=== PATIENT | female | born 1930 | race Caucasian/White ===

== ENCOUNTER → 2016-03-21 | Outpatient (CLI) | payer MEDICARE, OTHER | END | disposition home or self-care (01) | LOC: MW.CHFP 13:51 | PROVIDERS: ATTEND Emergency Medicine | DX: I10 Essential (primary) hypertension (principal); L98.499 Non-pressure chronic ulcer of skin of other sites with unspecified severity; L92.9 Granulomatous disorder of the skin and subcutaneous tissue, unspecified; Z93.2 Ileostomy status; Z93.3 Colostomy status | CPT/HCPCS: 36415; 80053; 85027; G0463 ==

== ENCOUNTER → 2016-04-04 | Outpatient (CLI) | payer MEDICARE, OTHER | END | disposition home or self-care (01) | LOC: MW.CHFP 12:23 | PROVIDERS: ATTEND Emergency Medicine | DX: T81.4XXA Infection following a procedure, initial encounter (principal) | CPT/HCPCS: 87070; 87077; 87186; G0463 ==

== ENCOUNTER → 2016-05-30 | Outpatient (CLI) | payer MEDICARE, OTHER | LOC: MW.CHORTHO 08:00 | PROVIDERS: ATTEND Orthopaedic Surgery | DX: M17.11 Unilateral primary osteoarthritis, right knee (principal); M17.12 Unilateral primary osteoarthritis, left knee; M11.269 Other chondrocalcinosis, unspecified knee; M25.561 Pain in right knee; M25.562 Pain in left knee | CPT/HCPCS: 20610-50; 99214; J1040; J7326 ==

== ENCOUNTER → 2016-06-21 | Outpatient (CLI) | payer MEDICARE, OTHER | LOC: MW.CHFP 13:41 | PROVIDERS: ATTEND Emergency Medicine | DX: K52.9 Noninfective gastroenteritis and colitis, unspecified (principal); H61.23 Impacted cerumen, bilateral; H10.9 Unspecified conjunctivitis | CPT/HCPCS: G0463 ==

== ENCOUNTER → 2016-06-22 | Outpatient (CLI) | payer MEDICARE, OTHER | LOC: MW.CHFP 10:11 | PROVIDERS: ATTEND Emergency Medicine | DX: K52.9 Noninfective gastroenteritis and colitis, unspecified (principal) | CPT/HCPCS: 83630; 87046; 87324; 87899 ==

== ENCOUNTER 2016-08-06 15:18 | Emergency (ER) | payer MEDICARE, OTHER ==
--- NOTE | 2016-08-06 15:35 | EDM.PDOC ---
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 Willson within the last 2 weeks and old sutures were removed from ostomy site, she is followed with her surgeon Dr. Agustin twice last week , his scheduled her for surgical correction in 2 weeks from Sunday She is unable to place the ostomy which has not changed over the last week Dr. Agustin has been having her cover the opening with some abdominal pad and dressing changing as needed, her main problem is she is mildly dehydrated as she is not drinking much as after taking oral liquids or food obviously she has more stool leakage from the site She has red beefy skin surrounding the area she has been placing [place] 17 and a wound powder provided by Dr. Agustin No fever nausea vomiting chills sweats no chest pain shortness breath headache dizziness palpitation Review of systems: As per history of present illness and below otherwise all systems reviewed and negative. Past medical history: As per history of present illness and as reviewed below otherwise noncontributory. Surgical history: As per history of present illness and as reviewed below otherwise noncontributory. Social history: No reported history of drug or alcohol abuse. Family history: As per history of present illness and as reviewed below otherwise noncontributory. Physical exam: HEENT: Atraumatic, normocephalic, pupils reactive, negative for conjunctival pallor or scleral icterus, mucous membranes moist, throat clear, neck supple, nontender, trachea midline. Lungs: Clear to auscultation, breath sounds equal bilaterally, chest nontender. Heart: S1S2, regular, negative for clicks, rubs, or JVD. Abdomen: Soft, nondistended, nontender. Negative for masses or hepatosplenomegaly. Negative for costovertebral tenderness. Ostomy site beefy red skin surrounding old ostomy site with scant stool leakage , this is unchanged from previous per patient Pelvis: Stable nontender. Genitourinary: Deferred. Rectal: Deferred. Extremities: Atraumatic, negative for cords or calf pain. Neurovascular unremarkable. Neuro: Awake, alert, oriented. Cranial nerves II through XII unremarkable. Cerebellum unremarkable. Motor and sensory unremarkable throughout. Exam nonfocal. Diagnostics: []Lab as below Therapeutics: 1 L normal saline bolus []Rather than calmoseptine I have opted to provide Silvadene Follow-up with Dr. Agustin as scheduled sooner as needed, the patient plans to call tomorrow to be moved up on schedule Impression: Mild dehydration []Chronic wound/ostomy failure Definitive disposition and diagnosis as appropriate pending reevaluation and review of above. Abdominal Pain Score (Numeric/FACES): 6 - Related Data Allergies Allergy/AdvReac Type Severity Reaction Status Date / Time codeine Allergy Other Verified 04/10/16 13:56 morphine Allergy Other Verified 04/10/16 13:56 naproxen Allergy not known Verified 04/10/16 13:56 Penicillins Allergy unknown Verified 04/10/16 13:56 Sulfa (Sulfonamide Allergy unknown Verified 04/10/16 13:56 Antibiotics) Home Meds: Home Meds Omeprazole [Prilosec] 20 mg PO ACBREAKFAST 01/07/15 [History] atorvaSTATin [Lipitor] 20 mg PO BEDTIME 01/07/15 [History] traZODone 150 mg PO BEDTIME 01/07/15 [History] Aspirin [Adult Low Dose Aspirin EC] 81 mg PO DAILY 01/17/15 [History] Nitroglycerin [Nitrostat] 0.4 mg SL Q5M 06/06/15 [History] DAPTOmycin [Cubicin] 250 mg IVPUSH Q24H vial 04/11/16 [Rx] Nitroglycerin [Nitroglycerin Patch 0.2 MG/Hr] 2.5 mg TOP DAILY MDD 2.5 mg [History] Ondansetron [Zofran] 4 mg IVPUSH Q4H PRN #0 vial 04/11/16 [Rx] Sodium Chloride 0.9% [Normal Saline] 125 ml IV ASDIRECTED #0 bag 04/11/16 [Rx] Past Medical History HEENT History: Reports: None Cardiovascular History: Reports: High Cholesterol, Hypertension Respiratory History: Reports: None Gastrointestinal History: Reports: GERD Genitourinary History: Reports: Other (See Below) Other Genitourinary History: she had a prior history of a bowel to bladder fistula [employer] History: Reports: None Musculoskeletal History: Reports: Back Pain, Chronic, Other (See Below) Other Musculoskeletal History: . Laminectomy. she has had back problems in the past treated with surgery Neurological History: Reports: CVA Psychiatric History: Reports: None Endocrine/Metabolic History: Reports: None Hematologic History: Reports: None Immunologic History: Reports: None Oncologic (Cancer) History: Reports: None Dermatologic History: Reports: None - Infectious Disease History Infectious Disease History: Reports: Chicken Pox, Measles, MRSA, Mumps - Past Surgical History GI Surgical History: Reports: Hernia Repair/Other, Other (See Below) Musculoskeletal Surgical History: Reports: Knee Replacement, Other (See Below) Social & Family History - Family History Family Medical History: Noncontributory - Tobacco Use Smoking Status *Q: Never Smoker Years of Tobacco use: 10 Second Hand Smoke Exposure: No - Caffeine Use Caffeine Use: Reports: Coffee - Recreational Drug Use Recreational Drug Use: No ED ROS GENERAL - Review of Systems Review Of Systems: ROS reveals no pertinent complaints other than HPI. ED EXAM, GENERAL - Physical Exam Exam: See Below Course - Vital Signs Last Recorded V/S: Last Vital Signs Temp 36.4 C 08/06/16 15:27 Pulse 93 08/06/16 15:27 Resp 18 08/06/16 15:27 BP 172/69 H 08/06/16 15:27 Pulse Ox 97 08/06/16 15:27 - Orders/Labs/Meds Orders: Active Orders 24 hr Category Date Time Status Sodium Chloride 0.9% [Normal Saline] 1,000 ml Med 08/06/16 15:39 Active IV STAT Medication Orders Sodium Chloride (Normal Saline) 1,000 mls @ 999 mls/hr IV STAT ONE Stop: 08/06/16 16:39 Last Admin: 08/06/16 15:51 Dose: 999 mls/hr Labs: Laboratory Tests 08/06/16 08/06/16 Range/Units 14:40 14:40 WBC 8.85 (4.0-11.0) K/uL RBC 4.24 L (4.30-5.90) M/uL Hgb 11.4 L (12.0-16.0) g/dL Hct 36.0 (36.0-46.0) % MCV 84.9 (80.0-98.0) fL MCH 26.9 L (27.0-32.0) pg MCHC 31.7 (31.0-37.0) g/dL RDW Std Deviation 44.8 (28.0-62.0) fl RDW Coeff of Geo 15 (11.0-15.0) % Plt Count 243 (150-400) K/uL MPV 9.70 (7.40-12.00) fL Neut % (Auto) 84.1 H (48.0-80.0) % Lymph % (Auto) 11.2 L (16.0-40.0) % [place] % (Auto) 4.0 (0.0-15.0) % Eos % (Auto) 0.6 (0.0-7.0) % Baso % (Auto) 0.1 (0.0-1.5) % Neut # (Auto) 7.5 H (1.4-5.7) K/uL Lymph # (Auto) 1.0 (0.6-2.4) K/uL [place] # (Auto) 0.4 (0.0-0.8) K/uL Eos # (Auto) 0.1 (0.0-0.7) K/uL Baso # (Auto) 0.0 (0.0-0.1) K/uL Nucleated RBC % 0.0 /100WBC Nucleated RBCs # 0 K/uL Sodium 140 (136-146) mmol/L Potassium 4.3 (3.5-5.1) mmol/L Chloride 107 (98-110) mmol/L Carbon Dioxide 21 (21-31) mmol/L BUN 23 (6.0-23.0) mg/dL Creatinine 1.4 (0.6-1.5) mg/dL Est Cr Clr Drug Dosing 21.49 mL/min Estimated GFR (MDRD) 35.8 ml/min Glucose 109 (60-110) mg/dL Calcium 8.7 L (8.8-10.8) mg/dL Total Bilirubin 0.4 (0.1-1.5) mg/dL AST 24 (5-40) IU/L ALT 23 (8-54) IU/L Alkaline Phosphatase 81 (40-150) Total Protein 7.1 (6.0-8.0) g/dL Albumin 3.8 (3.4-4.8) g/dL Globulin 3.3 (2.0-3.5) g/dL Albumin/Globulin Ratio 1.2 L (1.3-2.8) Meds: Medications Generic Name Dose Route Start Last Admin Trade Name Freq PRN Reason Stop Dose Admin Sodium Chloride 1,000 mls @ 999 mls/hr 08/06/16 15:39 08/06/16 15:51 Normal Saline IV 08/06/16 16:39 999 mls/hr STAT ONE Administration Discontinued Medications Generic Name Dose Route Start Last Admin Trade Name Freq PRN Reason Stop Dose Admin Silver Sulfadiazine 50 gm 08/06/16 16:14 Silvadene 1% Cream 50 Gm TOP 08/06/16 16:15 ONETIME ONE Departure - Departure Time of Disposition: 16:26 Disposition: Home, Self-Care 01 Condition: Good Clinical Impression: Encounter for wound care - Discharge Information Referrals: Gume Kaur MD [Primary Care Provider] - Forms: ED Department Discharge Additional Instructions: Follow-up with Dr. Agustin as scheduled or sooner as needed Return if symptoms persist or worsen Silvadene applied as directed The following information is given to patients seen in the emergency department who are being discharged to home. This information is to outline your options for follow-up care. We provide all patients seen in our emergency department with a follow-up referral. The need for follow-up, as well as the timing and circumstances, are variable depending upon the specifics of your emergency department visit. If you don't have a primary care physician on staff, we will provide you with a referral. We always advise you to contact your personal physician following an emergency department visit to inform them of the circumstance of the visit and for follow-up with them and/or the need for any referrals to a consulting specialist. The emergency department will also refer you to a specialist when appropriate. This referral assures that you have the opportunity for follow-up care with a specialist. All of these measure are taken in an effort to provide you with optimal care, which includes your follow-up. Under all circumstances we always encourage you to contact your private physician who remains a resource for coordinating your care. When calling for follow-up care, please make the office aware that this follow-up is from your recent emergency room visit. If for any reason you are refused follow-up, please contact the [facility] emergency department at and asked to speak to the emergency department charge nurse. - My Orders Last 24 Hours: My Active Orders 08/06/16 15:39 Sodium Chloride 0.9% [Normal Saline] 1,000 ml IV STAT - Assessment/Plan Last 24 Hours: My Active Orders 08/06/16 15:39 Sodium Chloride 0.9% [Normal Saline] 1,000 ml IV STAT
[2016-08-06] MEDS ORDERED: Sodium Chloride 0.9% 1,000 ML IV ONE (15:39)
[2016-08-06] MEDS ORDERED: Silver Sulfadiazine 1% Crm 50 GM Tube TOP ONE (16:14)
[2016-08-06 19:45] VITALS: BP 147/58
== END 2016-08-06 17:16 | disposition home or self-care (01) ==
LOC: MW.ED 15:18
DX: Z43.3 Encounter for attention to colostomy (principal); E86.0 Dehydration; Z79.82 Long term (current) use of aspirin; Z79.899 Other long term (current) drug therapy; E78.00 Pure hypercholesterolemia, unspecified; I10 Essential (primary) hypertension; K21.9 Gastro-esophageal reflux disease without esophagitis; Z98.890 Other specified postprocedural states; Z96.659 Presence of unspecified artificial knee joint
CPT/HCPCS: 80053; 85025; 96360; 99285; A9270; J7040; 99284